=== PATIENT | male | born 1960 | race Hispanic/Latino ===

== ENCOUNTER 2017-12-05 18:07 | Emergency (ER) | payer BC ==
[~2017-12-05] VITALS: Ht 170.2 cm; Wt 71.7 kg
[2017-12-05] MEDS ORDERED: MORPHINE SULFATE 5 MG/ML VIAL IV ONE (19:45)
[2017-12-05] MEDS ORDERED: PREDNISONE 20 MG TAB PO ONE (19:45)
[2017-12-05 22:13] VITALS: BP 169/99
== END 2017-12-05 22:23 | disposition home or self-care (01) ==
LOC: FSED 18:07
DX: M54.5 Low back pain (principal); M54.6 Pain in thoracic spine; S39.012A Strain of muscle, fascia and tendon of lower back, initial encounter; S23.3XXA Sprain of ligaments of thoracic spine, initial encounter
CPT/HCPCS: 99284; J2270